=== PATIENT | female | born 2005 | race Caucasian/White ===

== ENCOUNTER 2025-03-22 18:56 | Emergency (ER) | payer MEDICAID ==
[~2025-03-22] VITALS: Ht 157.5 cm; Wt 82.0 kg
[2025-03-22 19:00] VITALS: O2SAT 98
[2025-03-22] MEDS ORDERED: ACET-2708 MT (21:42)
[2025-03-22 22:03] VITALS: BP 119/75; PULSE 95; RESP 12; TEMP 36.7; O2SAT 97
== END 2025-03-22 22:06 | disposition home or self-care (01) ==
LOC: ER 18:56
DX: M54.2 Cervicalgia (principal); M25.551 Pain in right hip; R07.89 Other chest pain; Z79.899 Other long term (current) drug therapy
CPT/HCPCS: 71045; 72170; 99284